=== PATIENT | female | born 1960 | race Caucasian/White ===

== ENCOUNTER 2021-03-04 19:52 | Emergency (ER) | payer OTHER ==
[~2021-03-04] VITALS: Ht 157.5 cm; Wt 81.6 kg
[~2021-03-04 19:52] MED LIST: CILOSTAZOL50 MG; GLUCOPHAGE XR500 MG PO; HUMALOG100 U/M1; INVOKANA100 MG; MECLIZINE HCL25 MG PO; METFORMIN HCL500 M1; NEURONTIN800 MG; PLAVIX75 MG; PNEU16DI2; TOPROL XL50 M1
[2021-03-04] MEDS ORDERED: HUMULIN 70100 UNIT/2 SQ (21:24)
[2021-03-04] MEDS ORDERED: CRESTOR10 MG PO (21:24)
[2021-03-04] MEDS ORDERED: ZETIA10 MG PO (21:24)
== END 2021-03-05 03:25 | disposition home or self-care (01) ==
LOC: ER 19:52
DX: U07.1 COVID-19 (principal)

== ENCOUNTER 2021-05-14 15:53 | Emergency (ER) | payer OTHER ==
[~2021-05-14] VITALS: Ht 167.6 cm; Wt 83.5 kg
[~2021-05-14 15:53] MED LIST changes: +CRESTOR10 MG PO; +HUMULIN 70100 UNIT/2 SQ; +ZETIA10 MG PO
[2021-05-14] MEDS ORDERED: XARELTO10 MG PO (16:03)
== END 2021-05-14 19:50 | disposition home or self-care (01) ==
LOC: ER 15:53
DX: S00.93XA Contusion of unspecified part of head, initial encounter (principal); W18.30XA Fall on same level, unspecified, initial encounter; Y92.018 Other place in single-family (private) house as the place of occurrence of the external cause; Z88.0 Allergy status to penicillin; I10 Essential (primary) hypertension

== ENCOUNTER 2022-11-08 20:51 | Emergency (ER) | payer OTHER ==
[~2022-11-08] VITALS: Ht 167.6 cm; Wt 84.8 kg
[~2022-11-08 20:51] MED LIST changes: +XARELTO10 MG PO
== END 2022-11-08 22:49 | disposition home or self-care (01) ==
LOC: ER 20:51
DX: E11.9 Type 2 diabetes mellitus without complications (principal); Z79.4 Long term (current) use of insulin; I10 Essential (primary) hypertension; Z88.0 Allergy status to penicillin; Z91.018 Allergy to other foods

== ENCOUNTER 2022-12-17 18:39 | Inpatient (IN) | payer OTHER ==
[~2022-12-17] VITALS: Ht 167.6 cm; Wt 78.9 kg
--- NOTE | 2022-12-17 18:54 | NUR ---
PTE ALERTA,ESTABLE Y ORIENTADA.ESTA REFIERE QUE DESDE EL 03/12/22 COMENZO CON L[facility] DI[facility].
[2022-12-17 19:52] LABS: HEMATOCRIT 28.3 % (36.0-45.00); HEMOGLOBIN 9.8 g/dL (12.0-15.00); MEAN CELL VOLUME 86.3 fL (80.00-100.00); MEAN CORPUSCULAR HEMOGLOBIN 29.8 pg (27.00-32.0); MEAN CORPUSCULAR HGB CONC 34.5 g/dl (32.0-36.0); PLATELET COUNT 210 K/uL (150-450); RED BLOOD COUNT 3.28 M/uL (4.00-6.00); RED CELL DISTRIBUTION WIDTH 14.8 % (11.5-14.5)
[2022-12-17 19:57] LABS: URINE APPEARANCE Clear; URINE BILIRRUBIN Negative (NEGATIVE); URINE BLOOD Negative; URINE COLOR Yellow; URINE LEUKOCYTE Negative; URINE NITRATE Negative; URINE PROTEIN Trace (NEGATIVE); URINE UROBILINOGEN 0.2 E.U./dl
--- NOTE | 2022-12-17 19:57 | NUR ---
PTE EVALUADO POR MD [facility] [place] [facility] A PTE SE EDUCA A PTE SOBRE EL MISMO Y REFIER EENTENDER. SE REALIZA VENOPUNCION BAJO MEDIDAS ACEPTICAS. PTE PEND A RESULTADOS DE LAB Y REALIZACION DE CT.
[2022-12-17 20:01] LABS: URINE BACTERIA 345.1 uL (0.0-1933); URINE RBC 6.3 uL (0.0-20.8); URINE WBC 30.3 uL (0.0-23.2)
[2022-12-17 20:16] LABS: INR 1.09; PARTIAL THROMBOPLASTIN TIME 26.2 SECONDS (22.0-34.0); PROTHROMBIN TIME 11.4 SECONDS (9.0-11.5)
[2022-12-17 20:20] LABS: URINE GLUCOSE >=1000 MG/DL (NEGATIVE)
[2022-12-17 20:21] LABS: URINE MUCUS SCANT
[2022-12-17 20:22] LABS: URINE CRYSTALS FEW /HPF
[2022-12-17 20:27] LABS: CALCIUM 9.6 mg/dL (8.5-10.1); CREATININE SERUM 1.5 mg/dL (0.55-1.02); GFR 35.07; POTASSIUM 4.77 mEq/L (3.5-5.1)
[2022-12-18 03:44] LABS: MAGNESIUM 2.3 mg/dL (1.8-2.4); PHOSPHOROUS 3.8 mg/dL (2.5-4.9)
[2022-12-18 16:59] LABS: URINE APPEARANCE Clear; URINE BILIRRUBIN Negative (NEGATIVE); URINE BLOOD Negative; URINE COLOR Yellow; URINE LEUKOCYTE Negative; URINE NITRATE Negative; URINE PROTEIN Trace (NEGATIVE); URINE UROBILINOGEN 0.2 E.U./dl
[2022-12-18 17:03] LABS: URINE BACTERIA 31.4 uL (0.0-1933); URINE EPITHELIAL CELLS 5.4 uL (0.0-38.8); URINE WBC 1.8 uL (0.0-23.2)
[2022-12-18 17:05] LABS: URINE GLUCOSE >=1000 MG/DL (NEGATIVE); URINE RBC 0.5 uL (0.0-20.8)
[2022-12-19 05:26] LABS: HEMATOCRIT 27.6 % (36.0-45.00); HEMOGLOBIN 9.5 g/dL (12.0-15.00); MEAN CELL VOLUME 86.8 fL (80.00-100.00); MEAN CORPUSCULAR HEMOGLOBIN 29.8 pg (27.00-32.0); MEAN CORPUSCULAR HGB CONC 34.4 g/dl (32.0-36.0); PLATELET COUNT 186 K/uL (150-450); RED BLOOD COUNT 3.18 M/uL (4.00-6.00); RED CELL DISTRIBUTION WIDTH 14.9 % (11.5-14.5)
[2022-12-19 05:48] LABS: ALBUMIN 3.3 gm/dL (3.4-5.0); BILIRUBIN TOTAL 0.26 mg/dL (0.3-1.2); CALCIUM 8.6 mg/dL (8.5-10.1); CREATININE SERUM 1.23 mg/dL (0.55-1.02); GFR 44.1; GLOBULINA 3.1 G/DL (2.4-3.5); MAGNESIUM 2.2 mg/dL (1.8-2.4); PHOSPHOROUS 3.3 mg/dL (2.5-4.9); POTASSIUM 4.61 mEq/L (3.5-5.1); TOTAL PROTEIN 6.4 gm/dL (6.4-8.2)
[2022-12-19 05:53] LABS: C-REACTIVE PROTEIN 0.54 MG/DL (0.00-0.29)
== END 2022-12-19 18:20 | disposition home or self-care (01) | DRG 379 ==
LOC: ER 18:39 → MEDJ 23:59
PROVIDERS: General Practice; Internal Medicine Infectious Disease; ADMIT Specialist; ATTEND Specialist
PROC: BW21YZZ Computerized Tomography (CT Scan) of Abdomen and Pelvis using Other Contrast (ICD-10-PCS; principal; 2022-12-17)
DX: K92.1 Melena (principal); D64.9 Anemia, unspecified; E11.21 Type 2 diabetes mellitus with diabetic nephropathy; Z79.4 Long term (current) use of insulin; I10 Essential (primary) hypertension